=== PATIENT | female | born 1960 | race Two or more races ===

== ENCOUNTER 2019-03-03 13:03 | Observation (INO) | payer BC, OTHER ==
--- NOTE | 2019-03-03 13:16 | PDOC ---
Rapid Medical Evaluation Time Seen by Provider: 03/03/19 13:15 Medical Evaluation: 03/03/19 13:15 I have performed a brief in-person evaluation of this patient. The patient presents with a chief complaint of: Sent by PCP to r/o TIA vs vertigo Pertinent physical exam findings: NAD, ambulates I have ordered the following: Ct head The patient will proceed to the ED for further evaluation. Discharge Disposition - Diagnosis Dizziness - Referrals - Patient Instructions - Post Discharge Activity
--- NOTE | 2019-03-03 14:25 | PDOC ---
History of Present Illness - General Chief Complaint: Lightheaded Stated Complaint: SENT BY PCP Time Seen by Provider: 03/03/19 13:15 History Source: Patient Exam Limitations: No Limitations - History of Present Illness Initial Comments: 03/03/19 14:13 58 yo female pmh of HLD (not on statin, treated with diet) and ocular migraines with aura (strange taste in her mouth) presents to the ED for light headedness. Pt states around 8 pm last night after getting up from a seated position she suddenly became light headed, became excessively weak, had a presyncopal episode and was lowered to the ground by her . Denies LOC, hitting head, NAQVI, focal weakness. Pt admits to constant lightheadedness, nausea but no vomiting, unsteady gait. Denies F/C/N/V, CP, palpitations, SOB, changes in bowel or bladder habits. Pt went to PCP (Dr. Dylon Fuchs) and was sent to the ED for r/o TIA. Denies F/C, CP, palpitations, SOB, abdominal pain, changes in bowel or bladder habits. NIH Stroke Scale - Last Known Well Date/Time & Onset Date Last Known Well: 03/02/19 Time Last Known Well: 20:00 - Initial Evaluation Level of consciousness: Alert Ask patient the month and their age: Answers both correctly Ask patient to open & close eyes; make fist and let go: Obeys both correctly Best gaze (horizontal eye movement): Normal Visual field testing: No visual field loss Facial paresis (Show teeth/raise eyebrows/close eyes tight): Normal symmetrical movement Motor Function: Left Arm: Normal Motor Function: Right Arm: Normal (extends arm 90 (or 45) degrees for 10 seconds without drift Motor Function: Left Leg: Normal (extends leg 30 degrees for 5 seconds without drift) Motor Function: Right Leg: Normal (extends leg 30 degrees for 5 seconds without drift) Limb Ataxia: No ataxia Sensory(Use pinprick test arms,legs,trunk,face/side to side): Normal Best language (Describe picture, name items, read sentences): No Aphasia Dysarthria (read several words): Normal articulation Extinction and Inattention: No abnormality - Total Score NIH Stroke Scale Score: 0 Past History - Past Medical History Allergies/Adverse Reactions: Allergies Allergy/AdvReac Type Severity Reaction Status Date / Time No Known Allergies Allergy Verified 03/03/19 19:01 Home Medications: Ambulatory Orders NK [No Known Home Medication] 03/03/19 COPD: No - Immunization History Immunization Up to Date: Yes - Suicide/Smoking/Psychosocial Hx Smoking History: Never smoked Hx Alcohol Use: No Drug/Substance Use Hx: No Review of Systems - Review of Systems Constitutional: No: Chills, Fever HEENTM: Yes: Other (right ear hearing loss over the past 2 months). No: Blurred Vision, Double Vision, Tinnitus Respiratory: No: Shortness of Breath Cardiac (ROS): No: Chest Pain, Edema ABD/GI: Yes: Nausea. No: Constipated, Diarrhea, Vomiting : No: Burning, Dysuria, Flank Pain, Hematuria Musculoskeletal: No: Back Pain Integumentary: No: Bruising, Change in Color Neurological: Yes: Weakness (generalized), Unsteady Gait, Dizziness. No: Headache, Numbness, Paresthesia *Physical Exam - Vital Signs Last Vital Signs Temp Pulse Resp BP Pulse Ox 97.8 F 99 H 16 143/72 95 03/03/19 13:15 03/03/19 13:15 03/03/19 13:15 03/03/19 13:15 03/03/19 13:15 - Physical Exam General Appearance: Yes: Nourished, Appropriately Dressed. No: Apparent Distress HEENT: positive: EOMI, TIFFANY, Normal Voice, Hearing Grossly Normal. negative: Photophobia, Sinus Tenderness, TM Bulging, TM Erythema Neck: positive: Supple. negative: Carotid bruit, Decreased range of motion, Tender lateral, Tender midline Respiratory/Chest: positive: Lungs Clear, Normal Breath Sounds. negative: Respiratory Distress, Accessory Muscle Use, Rapid RR, Crackles, Rales, Rhonchi, Stridor, Wheezing Cardiovascular: positive: Regular Rhythm, Regular Rate, S1, S2. negative: Edema , JVD, Murmur Vascular Pulses: Dorsalis-Pedis (R): 4+, Doralis-Pedis (L): 4+ Gastrointestinal/Abdominal: positive: Flat, Soft. negative: Pulsatile Mass, Guarding, Rebound, Tenderness Musculoskeletal: negative: CVA Tenderness Extremity: positive: Normal Capillary Refill, Normal Range of Motion Integumentary: positive: Normal Color, Dry, Warm Neurologic: positive: business services specialist sales II-XII NML intact, Fully Oriented, Alert, Normal Mood/ Affect, Normal Response, Motor Strength 5/5, Other (no drift, normal rapid alternating movements ). negative: Facial Droop, Numbness, Sensory Deficit, Finger to Nose (normal), Confused, Disoriented ED Treatment Course - LABORATORY CBC & Chemistry Diagram: 03/04/19 06:19 03/04/19 06:19 - RADIOLOGY Radiology Studies Ordered: Category Date Time Status CHEST X-RAY PORTABLE* [RAD] Stat Radiology 03/03/19 14:09 Ordered Medical Decision Making - Medical Decision Making 58 yo female pmh of HLD (not on statin, treated with diet) and ocular migraines with aura (strange taste in her mouth) presents to the ED for light headedness. Pt states around 8 pm last night after getting up from a seated position she suddenly became light headed, became excessively weak, had a presyncopal episode and was lowered to the ground by her . Denies LOC, hitting head, NAQVI, focal weakness. Pt admits to constant lightheadedness, nausea but no vomiting, unsteady gait. Denies F/C/N/V, CP, palpitations, SOB, changes in bowel or bladder habits. Pt went to PCP (Dr. Dylon Fuchs) and was sent to the ED for r/o TIA. Denies F/C, CP, palpitations, SOB, abdominal pain, changes in bowel or bladder habits. Vitals WNL NAD, AOX3 Pt ambulates but very guarded and slow DDX INLT: CVA/TIA, central vs peripheral vertigo, toxic/metabolic/infectious etiology see PE Labs wnl Head CT negative for acute path ASA, Statin and non con MRI ordered 03/03/19 16:[address] Dylon George who agrees to have pt admitted to Stroke unit Spoke with Dr. Renee who is covering for Dr. Gomez, agrees to give asa, statin and MRI and will assess pt in the ED this afternoon for TIA/CVA *DC/Admit/Observation/Transfer Diagnosis at time of Disposition: Dizziness, TIA (transient ischemic attack), Weakness - Discharge Dispostion Disposition: HOME Condition at time of disposition: Stable Decision to Admit order: Yes - Referrals - Patient Instructions - Post Discharge Activity
--- NOTE | 2019-03-03 14:47 | PDOC ---
Attending Attestation - HPI HPI: 03/03/19 15:38 Patient is a 58 year old female with a significant past medical history of HLD, who presents to the ED with complaints of lightheadedness. Patient reports experiencing sudden episode of lightheadedness and associated general weakness after standing up from a seated position too fast. She reports having a presyncopal episode in which she had to be lowered onto the floor by her so that she would not fall. Patient reports going to see her PCP who advised her to come into the ED for further evaluation. Denies chest pain, sob. Denies nausea, vomiting. Denies fevers, chills. Denies diarrhea, constipation, diarrhea. Denies dysuria, hematuria. Denies contact with sick individuals, out of state travelling. Denies any other symptoms. Allergies: None Social history: No smoking. No alcohol. No illicit drugs. Surgical history: None PMD: Dr. Dylon guadalupe <Chalo Gtz - Last Filed: 03/03/19 15:38> - Resident Resident Name: Alessandro Ayala - ED Attending Attestation I have performed the following: I have examined & evaluated the patient, The case was reviewed & discussed with the resident, I agree w/resident's findings & plan, Exceptions are as noted - Physicial Exam PE: 03/03/19 17:15 GENERAL: The patient is in no acute distress. ENT: Ears normal, nares patent, oropharynx clear without exudates. Moist mucous membranes. No tonsillar enlargement, no exudates NECK: Normal range of motion, supple LUNGS: Breath sounds equal, clear to auscultation bilaterally. No wheezes, and no crackles. HEART:Regular rate and rhythm, normal S1 and S2 without murmur, rub or gallop. ABDOMEN: Soft, nontender, normoactive bowel sounds. EXTREMITIES: Normal range of motion, no edema. NEUROLOGICAL: Cranial nerves II through XII grossly intact. Normal speech. No focal neurological deficits. No focal weakness or numbness SKIN: Warm, Dry, normal turgor, no rashes or lesions noted. - Medical Decision Making 03/03/19 17:15 Twelve-lead EKG was performed and reviewed by me. There is normal sinus rhythm with a normal rate. The axis is normal. The intervals are normal. There are no ST or T wave abnormalities. Impression: Normal twelve-lead EKG 03/03/19 17:16 Laboratory Tests 03/03/19 03/03/19 03/03/19 15:20 15:30 15:30 WBC 6.9 Hgb 15.2 Hct 45.9 H Plt Count 279 INR 1.03 BUN Creatinine Creatine Kinase Troponin I Urine Blood Negative Urine Nitrite Negative Ur Leukocyte Esterase Negative 03/03/19 15:30 WBC Hgb Hct Plt Count INR BUN 13 Creatinine 0.6 Creatine Kinase 139 Troponin I < 0.02 Urine Blood Urine Nitrite Ur Leukocyte Esterase CT head - no acute pathology <Sierra Miller - Last Filed: 03/03/19 17:17>
--- NOTE | 2019-03-03 15:15 | EKG ---
Test Reason : Blood Pressure : / mmHG Vent. Rate : 080 BPM Atrial Rate : 080 BPM P-R Int : 156 ms QRS Dur : 088 ms QT Int : 416 ms P-R-T Axes : 062 059 069 degrees QTc Int : 479 ms NORMAL SINUS RHYTHM WITH SINUS ARRHYTHMIA MINIMAL VOLTAGE CRITERIA FOR LVH, MAY BE NORMAL VARIANT BORDERLINE ECG NO PREVIOUS ECGS AVAILABLE Confirmed by KIRK HIDALGO, SOHA ([id number]) on 03/03/2019 3:15:19 PM Referred By: Confirmed By:SOHA BRADLEY MD
[2019-03-03 15:45] LABS: BASO % 1.3 % (0-2.0); HEMATOCRIT 45.9 % (32.4-45.2); HEMOGLOBIN 15.2 GM/dL (10.7-15.3); LYMPH % 29.5 % (8-40); MCH 29.2 pg (25.7-33.7); MCHC 33.2 g/dl (32.0-36.0); MEAN CELL VOLUME 87.8 fl (80-96); MEAN PLT VOLUME 9.5 fl (7.5-11.1); MONO % 7.1 % (3.8-10.2); NEUT % 59.1 % (42.8-82.8); PLATELET COUNT 279 K/MM3 (134-434); RBC 5.22 M/mm3 (3.60-5.2); RDW 13.5 % (11.6-15.6); WHITE BLOOD COUNT 6.9 K/mm3 (4.0-10.0)
[2019-03-03 15:46] LABS: URINE APPEARANCE CLEAR; URINE BILIRUBIN NEGATIVE (NEGATIVE); URINE COLOR YELLOW; URINE GLUCOSE (UA) NEGATIVE (NEGATIVE); URINE KETONE NEGATIVE (NEGATIVE); URINE LEUK ESTERASE NEGATIVE (NEGATIVE); URINE NITRITE NEGATIVE (NEGATIVE); URINE PROTEIN NEGATIVE (NEGATIVE); URINE UROBILINOGEN 0.2 mg/dL (0.2-1.0)
[2019-03-03 15:59] LABS: INR 1.03 (0.83-1.09); PROTHROMBIN TIME (PATIENT) 12.1 SEC (9.7-13.0)
[2019-03-03 17:09] LABS: ALK PHOS 165 U/L (45-117); ANION GAP 9 MMOL/L (8-16); BILIRUBIN,TOTAL 0.3 mg/dL (0.2-1); BLOOD UREA NITROGEN 13 mg/dL (7-18); CALCIUM 8.7 mg/dL (8.5-10.1); CHLORIDE 107 mmol/L (98-107); CO2 25 mmol/L (21-32); CREATININE 0.6 mg/dL (0.55-1.3); GLUCOSE,RANDOM 84 mg/dL (74-106); SGOT/AST 22 U/L (15-37); SGPT/ALT 43 U/L (13-61); SODIUM 141 mmol/L (136-145); TOT PROT 7.9 g/dl (6.4-8.2)
--- NOTE | 2019-03-03 18:56 | HP ---
Admitting History and Physical - Admission Chief Complaint: came to my office c/o of dizzinesswhen moving head started last pm but also c/o. oerioral numbness and inability to move rt leg forward. sent er ? admitt observation and complete w/u w mri in am History Source: Patient, Family Member Limitations to Obtaining History: No Limitations - Past Medical History Cardiovascular: Yes: Other (h/o rh fever) ...: No Musculoskeletal: Yes: Chronic low back pain Endocrine: Yes: Other (endometriosid) - Past Surgical History Past Surgical History: Yes: None - Smoking History Smoking history: Never smoked - Alcohol/Substance Use Hx Alcohol Use: No - Social History Usual Living Arrangement: Yes: With Spouse ADL: Independent History of Recent Travel: No Family Disease History - Family Disease History Family History: Unremarkable Review of Systems - Review of Systems Constitutional: reports: No Symptoms Eyes: reports: No Symptoms HENT: reports: Other (? vertigo) Neck: reports: No Symptoms Cardiovascular: reports: No Symptoms Respiratory: reports: No Symptoms Gastrointestinal: reports: No Symptoms Genitourinary: reports: No Symptoms Musculoskeletal: reports: Back Pain Integumentary: reports: No Symptoms Neurological: reports: Dizziness Endocrine: reports: No Symptoms Hematology/Lymphatic: reports: No Symptoms Psychiatric: reports: No Symptoms Physical Examination Vital Signs: Vital Signs Temperature 97.8 F 03/03/19 13:15 Pulse Rate 99 H 03/03/19 13:15 Respiratory Rate 16 03/03/19 13:15 Blood Pressure 143/72 03/03/19 13:15 O2 Sat by Pulse Oximetry (%) 95 03/03/19 13:15 Constitutional: Yes: Well Nourished Eyes: Yes: WNL HENT: Yes: Other (pos head tilt test) Cardiovascular: Yes: WNL Respiratory: Yes: WNL Gastrointestinal: Yes: WNL ...Rectal Exam: Yes: Deferred Renal/: Yes: WNL Breast(s): Yes: WNL Extremities: Yes: WNL Edema: No Peripheral Pulses: Left Radial: 3+, Right Radial: 3+, Left Doralis Pedis: 3+, Right Dorsalis Pedis: 3+, Left Femoral: 3+, Right Femoral: 3+ Integumentary: Yes: WNL ...Motor Strength: WNL Psychiatric: Yes: WNL Labs: CBC, BMP 03/03/19 15:20 03/03/19 15:30 Assessment/Plan admitt oserv mri in am caratid sono echo neuro consult neuro chk antiver po reg diet bed rest asa po
[2019-03-03] MEDS ORDERED: MECLIZINE HCL 25 MG TABLET (FP) PO PRN (19:10)
[2019-03-03] MEDS ORDERED: ATORVASTATIN CA 80 MG TABLET (FP) PO ONE (19:15)
[2019-03-03] MEDS ORDERED: ASPIRIN 325 MG ENTERIC COATED TABLET (FP) PO ONE (19:15)
--- NOTE | 2019-03-03 22:02 | CON.NEURO ---
Consult Consult Specialty:: NEUROLOGY-REECE HIDALGO - History of Present Illness History of Present Illness: 58 yo female pmh of HLD (not on statin, treated with diet) and ocular migraines with aura (strange taste in her mouth) presents to the ED for light headedness. Pt states around 8 pm last night after getting up from a seated position she suddenly became light headed, became excessively weak, had a presyncopal episode and was lowered to the ground by her . Denies LOC, hitting head, NAQVI, focal weakness. Pt admits to constant lightheadedness, nausea but no vomiting, unsteady gait. Denies F/C/N/V, CP, palpitations, SOB, changes in bowel or bladder habits. Pt went to PCP (Dr. Dylon Fuchs) and was sent to the ED for r/o TIA. Denies F/C, CP, palpitations, SOB, abdominal pain, changes in bowel or bladder habits. 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 She also has cervical herniated discs. Last night while standing up had sudden onset dizziness and vertigo with muteness and "loosing strength in my legs"and collapsed to floor without LOC, was able to getr up after 10 mns, went to bed, an hour later had a few mns of vertigo again(all episodes without n/v0, woke up this morning with persistent dizzines and had another spell of vertigo lasting minutes-went to her PMDs and sent to ER. - Past Medical History Cardio/Vascular: Yes: Other (h/o rh fever) ...: No Musculoskeletal: Yes: Chronic low back pain Endocrine: Yes: Other (endometriosid) - Past Surgical History Past Surgical History: Yes: None - Alcohol/Substance Use Hx Alcohol Use: No - Smoking History Smoking history: Never smoked - Social History ADL: Independent History of Recent Travel: No Home Medications - Allergies Allergies/Adverse Reactions: Allergies Allergy/AdvReac Type Severity Reaction Status Date / Time No Known Allergies Allergy Verified 03/03/19 19:01 - Home Medications Home Medications: Ambulatory Orders NK [No Known Home Medication] 03/03/19 Physical Exam-Neuro Vital Signs: Vital Signs Temperature 97.8 F 03/03/19 13:15 Pulse Rate 78 03/03/19 19:05 Respiratory Rate 18 03/03/19 19:05 Blood Pressure 130/72 03/03/19 19:05 O2 Sat by Pulse Oximetry (%) 97 03/03/19 19:05 Labs: CBC, BMP 03/03/19 15:20 03/03/19 15:30 INR, PTT INR 1.03 (0.83-1.09) 03/03/19 15:30 - Neuro Exam DTR's: 1+ Left Tricep, 1+ Right Tricep, 1+ Left Brachioradialis, 1+ Right Brachioradialis, 1+ Left Achilles, 1+ Right Achilles (bilat knees-2+), 2+ Left Bicep, 2+ Right Bicep Motor Strength: 5/5: Left Arm, Right Arm, Left Leg, Right Leg (+RUE drift) Gait: Normal Imaging - Results Cat Scan: Image Reviewed (without acute abn.) Assessment/Plan Pt. with likely post-circulation crescendo TIAs, placed on ASA/statin today. Her exam is non-focal, her dizziness has improved markedly but is still present , vertigo resolved. Will obtain MRI brain(report pending, to my review no DWI abn but await report/MRA brain, ECHO/telemetry. Thank you, Shyla Renee MD
[2019-03-04 00:08] VITALS: BMI 28.7
[2019-03-04 07:54] LABS: BASO % 1.7 % (0-2.0); EOS % 3.9 % (0-4.5); HEMATOCRIT 44.2 % (32.4-45.2); HEMOGLOBIN 14.8 GM/dL (10.7-15.3); LYMPH % 31.4 % (8-40); MCH 29.1 pg (25.7-33.7); MCHC 33.4 g/dl (32.0-36.0); MEAN PLT VOLUME 9.4 fl (7.5-11.1); MONO % 6.5 % (3.8-10.2); NEUT % 56.5 % (42.8-82.8); PLATELET COUNT 254 K/MM3 (134-434); RBC 5.08 M/mm3 (3.60-5.2); RDW 13.6 % (11.6-15.6); WHITE BLOOD COUNT 5.5 K/mm3 (4.0-10.0)
[2019-03-04 08:31] LABS: ALBUMIN 3.6 g/dl (3.4-5.0); ALK PHOS 157 U/L (45-117); ANION GAP 8 MMOL/L (8-16); BILIRUBIN,TOTAL 0.5 mg/dL (0.2-1); BLOOD UREA NITROGEN 12 mg/dL (7-18); CHLORIDE 108 mmol/L (98-107); CO2 24 mmol/L (21-32); CREATININE 0.7 mg/dL (0.55-1.3); GLUCOSE,RANDOM 90 mg/dL (74-106); SGOT/AST 19 U/L (15-37); SGPT/ALT 41 U/L (13-61); SODIUM 141 mmol/L (136-145); TOT PROT 7.1 g/dl (6.4-8.2)
[2019-03-04] MEDS ORDERED: PANTOPRAZOLE 40 MG TABLET (FP) PO SCH (10:00)
[2019-03-04] MEDS ORDERED: ASPIRIN COATED 81 MG TABLET.EC PO SCH (10:00)
[2019-03-04 10:28] LABS: GAMMA GLUTAMYL TRANSPEPTIDASE 45 U/L (5-85)
--- NOTE | 2019-03-04 11:04 | PN ---
Progress Note, Physician Chief Complaint: feels better less diozziness vss - Current Medication List Current Medications: Active Medications Aspirin (Ecotrin -) 81 mg PO DAILY [facility] Last Admin: 03/04/19 10:16 Dose: 81 mg Atorvastatin Calcium (Lipitor -) 20 mg PO HS [facility] Meclizine HCl (Antivert -) 25 mg PO Q8H PRN PRN Reason: VERTIGO Pantoprazole Sodium (Protonix -) 40 mg PO DAILY [facility] Last Admin: 03/04/19 10:16 Dose: 40 mg - Objective Vital Signs: Vital Signs Temperature 97.5 F L 03/04/19 08:45 Pulse Rate 68 03/04/19 08:45 Respiratory Rate 18 03/04/19 08:45 Blood Pressure 120/65 03/04/19 08:45 O2 Sat by Pulse Oximetry (%) 98 03/03/19 22:00 Constitutional: Yes: Well Nourished Eyes: Yes: WNL HENT: Yes: WNL Neck: Yes: WNL Cardiovascular: Yes: WNL Respiratory: Yes: WNL, SOB on Exertion ...Rectal Exam: Yes: Deferred Genitourinary: Yes: WNL Breast(s): Yes: WNL Musculoskeletal: Yes: WNL, Muscle Weakness Edema: No Peripheral Pulses WNL: Yes Integumentary: Yes: WNL Neurological: Yes: Other (less dizziness) Psychiatric: Yes: WNL Labs: CBC, BMP 03/04/19 06:19 03/04/19 06:19 INR, PTT INR 1.03 (0.83-1.09) 03/03/19 15:30 Assessment/Plan post rt hemangioma? related to dizziness??? nuero f/u mras pnd chk sono high alp ggt
--- NOTE | 2019-03-04 11:06 | PN ---
Progress Note (short form) - Note Progress Note: 58 yo female pmh of HLD (not on statin, treated with diet) and ocular migraines with aura (strange taste in her mouth) presents to the ED for light headedness. Pt states around 8 pm last night after getting up from a seated position she suddenly became light headed, became excessively weak, had a presyncopal episode and was lowered to the ground by her . Denies LOC, hitting head, NAQVI, focal weakness. Pt admits to constant lightheadedness, nausea but no vomiting, unsteady gait. Denies F/C/N/V, CP, palpitations, SOB, changes in bowel or bladder habits. Pt went to PCP (Dr. Dylon George) and was sent to the ED for r/o TIA. Denies F/C, CP, palpitations, SOB, abdominal pain, changes in bowel or bladder habits. 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 She also has cervical herniated discs. Last night while standing up had sudden onset dizziness and vertigo with muteness and "loosing strength in my legs"and collapsed to floor without LOC, was able to getr up after 10 mns, went to bed, an hour later had a few mns of vertigo again(all episodes without n/v0, woke up this morning with persistent dizzines and had another spell of vertigo lasting minutes-went to her PMDs and sent to ER. MRI BRAIN IMPRESSION: Mild volume loss. Small venous angioma in the right posterior frontal lobe, medially with minimal hemosiderin deposits/chronic hemorrhage. Otherwise, no mass lesion, acute infarct or acute intracranial hemorrhage are identified. FU : better this AM, admits may have memory issues and word finding difficulty, + stress factors - Past Medical History Cardio/Vascular: Yes: Other (h/o rh fever) ...: No Musculoskeletal: Yes: Chronic low back pain Endocrine: Yes: Other (endometriosid) - Past Surgical History Past Surgical History: Yes: None - Alcohol/Substance Use Hx Alcohol Use: No - Smoking History Smoking history: Never smoked - Social History ADL: Independent History of Recent Travel: No Home Medications - Allergies Allergies/Adverse Reactions: Allergies Allergy/AdvReac Type Severity Reaction Status Date / Time No Known Allergies Allergy Verified 03/03/19 19:01 - Home Medications Home Medications: Ambulatory Orders NK [No Known Home Medication] 03/03/19 Physical Exam-Neuro Vital Signs: Vital Signs Temperature 97.5 F L 03/04/19 08:45 Pulse Rate 68 03/04/19 08:45 Respiratory Rate 18 03/04/19 08:45 Blood Pressure 120/65 03/04/19 08:45 O2 Sat by Pulse Oximetry (%) 98 03/03/19 22:00 Labs: CBC, BMP 03/03/19 15:20 03/03/19 15:30 INR, PTT INR 1.03 (0.83-1.09) 03/03/19 15:30 - Neuro Exam DTR's: 1+ Left Tricep, 1+ Right Tricep, 1+ Left Brachioradialis, 1+ Right Brachioradialis, 1+ Left Achilles, 1+ Right Achilles (bilat knees-2+), 2+ Left Bicep, 2+ Right Bicep Motor Strength: 5/5: Left Arm, Right Arm, Left Leg, Right Leg (+RUE drift) Gait: Normal Imaging - Results Cat Scan: Image Reviewed (without acute abn.) Assessment/Plan Positional dizziness , likely peripheral in nature ,resolving vertigo , MRI (-) . No consequence for venous angioma can FU Doppler -less likely vascular ENT eval outpt and likely can Dc home later today DR COMBS [id number]
--- NOTE | 2019-03-04 11:58 | ECHO ---
Name: JOSE LUIS SULTANA Exam:Adult Echocardiogram Study Date: 03/04/2019 08:24 AM Age: 58 yrs Reason For Study: TIA? Height: 64 in Weight: 160 lb BSA: 1.8 m2 MMode/2D Measurements & Calculations IVSd: 0.91 cm Ao root diam: 2.3 cm LVIDd: 4.8 cm LA dimension: 3.1 cm LVIDs: 3.0 cm LVPWd: 0.76 cm EDV(Teich): 109.1 ml LVOT diam: 2.0 cm ESV(Teich): 36.3 ml TAPSE: 2.7 cm Doppler Measurements & Calculations MV E max mika: 51.1 cm/sec Ao V2 max: 65.8 cm/sec MV A max mika: 78.5 cm/sec Ao max P.3 mmHg MV E/A: 0.65 Ao V2 mean: 69.3 cm/sec MV dec time: 0.24 sec Ao mean P.1 mmHg Ao V2 VTI: 22.2 cm MILI(I,D): 2.8 cm2 MILI(V,D): 4.4 cm2 LV V1 max P.7 mmHg SV(LVOT): 62.4 ml LV V1 mean P.1 mmHg LV V1 max: 96.4 cm/sec LV V1 mean: 67.9 cm/sec LV V1 VTI: 20.8 cm TR max mika: 211.9 cm/sec PI end-d mika: 74.5 cm/sec TR max P.2 mmHg Med Peak E' Mika: 3.8 cm/sec Med E/e': 13.4 Lat Peak E' Mika: 8.6 cm/sec Lat E/e': 5.9 Procedure A complete two-dimensional transthoracic echocardiogram was performed (2D, M-mode, Doppler and color flow Doppler). Left Ventricle The left ventricular size, thickness and function are normal. The left ventricular ejection fraction is normal. Ejection Fraction = 55-60%. The left ventricular wall motion is normal. Right Ventricle The right ventricle is normal in size and function. Atria Normal left and right atrial size and function. Mitral Valve There is no mitral regurgitation noted. Tricuspid Valve There is trace tricuspid regurgitation. Right ventricular systolic pressure is normal. Aortic Valve The aortic valve is trileaflet. No hemodynamically significant valvular aortic stenosis. No aortic regurgitation is present. Pulmonic Valve There is no pulmonic valvular regurgitation. Great Vessels The aortic root is normal size. Pericardium/Pleura There is no pericardial effusion. Interpretation Summary The left ventricular size, thickness and function are normal The right ventricle is normal in size and function. There is trace tricuspid regurgitation. MD Harrison Wolfe 03/04/2019 11:57 AM
--- NOTE | 2019-03-04 14:31 | PN ---
Progress Note, Physician - Current Medication List Current Medications: Active Medications Aspirin (Ecotrin -) 81 mg PO DAILY [facility] Last Admin: 03/04/19 10:16 Dose: 81 mg Atorvastatin Calcium (Lipitor -) 20 mg PO HS [facility] Meclizine HCl (Antivert -) 25 mg PO Q8H PRN PRN Reason: VERTIGO Pantoprazole Sodium (Protonix -) 40 mg PO DAILY [facility] Last Admin: 03/04/19 10:16 Dose: 40 mg - Objective Vital Signs: Vital Signs Temperature 97.5 F L 03/04/19 08:45 Pulse Rate 68 03/04/19 08:45 Respiratory Rate 18 03/04/19 08:45 Blood Pressure 120/65 03/04/19 08:45 O2 Sat by Pulse Oximetry (%) 97 03/04/19 10:00 Labs: CBC, BMP 03/04/19 06:19 03/04/19 06:19 INR, PTT INR 1.03 (0.83-1.09) 03/03/19 15:30 Assessment/Plan pt not on statin because she refused all meds incxludind statins i looked up chart and exsplainedto her and she remebers and agreed
--- NOTE | 2019-03-04 14:35 | DS ---
Physical Examination Vital Signs: Vital Signs Temperature 97.5 F L 03/04/19 08:45 Pulse Rate 68 03/04/19 08:45 Respiratory Rate 18 03/04/19 08:45 Blood Pressure 120/65 03/04/19 08:45 O2 Sat by Pulse Oximetry (%) 97 03/04/19 10:00 Constitutional: Yes: Well Nourished Eyes: Yes: WNL HENT: Yes: WNL Neck: Yes: WNL Cardiovascular: Yes: WNL Respiratory: Yes: WNL Gastrointestinal: Yes: WNL ...Rectal Exam: Yes: WNL Renal/: Yes: WNL Breast(s): Yes: WNL Musculoskeletal: Yes: WNL Extremities: Yes: WNL Edema: No Integumentary: Yes: WNL Neurological: Yes: WNL ...Motor Strength: WNL Psychiatric: Yes: WNL Labs: CBC, BMP 03/04/19 06:19 03/04/19 06:19 Discharge Summary Reason For Visit: TRANSIENT ISCHEMIC ATTACK,WEAKNESS Current Active Problems Dizziness (Acute) TIA (transient ischemic attack) (Acute) Weakness (Acute) Condition: Stable - Instructions Diet, Activity, Other Instructions: take aNTIVERT APPT W ME SAT 1100 D/C NOW HOME Referrals: Dylon George MD [Primary Care Provider] - Disposition: HOME - Home Medications Comprehensive Discharge Medication List: Ambulatory Orders NK [No Known Home Medication] 03/03/19
[2019-03-04 15:34] VITALS: BP 131/71; PULSE 83; TEMP 98.1
[2019-03-04] MEDS ORDERED: ATORVASTATIN CA 20 MG TABLET (FP) PO SCH (22:00)
== END 2019-03-04 17:21 | disposition home or self-care (01) ==
LOC: JER 13:03 → JERBED 16:27 → J4S 22:37
PROVIDERS: ADMIT Family Medicine; ATTEND Family Medicine
DX: G45.9 Transient cerebral ischemic attack, unspecified (principal); R53.1 Weakness; E78.5 Hyperlipidemia, unspecified
CPT/HCPCS: 36415; 70450-TC; 70551-TC; 71045-TC-FY; 80053; 81003; 82550; 82977; 84484; 85025; 85610; 86850; 86900; 86901; 87086; 93005; 93010; 93306-TC; 93880-TC; 97116-GP; 97162-GP; 99285-25; G0378

== ENCOUNTER 2019-06-01 05:23 | Inpatient (IN) | payer BC, OTHER ==
[2019-05-26 15:38] VITALS: BMI 29.2
--- NOTE | 2019-05-26 17:37 | HP ---
Admitting History and Physical - Primary Care Physician PCP: Dylon George - Admission Chief Complaint: preoperative evaluation History of Present Illness: 59 year old female with a PMHx significant for HLD, diet controlled presents for a preoperative history and physical. She has a cervical decompression laminectomy scheduled for 06/01/19. She states she has weakness, numbness and tingling in her hands and neck pain. She denies chest pain, sob, palpitations, n/v/d, fever/chills, no abdominal pain or recent illness, no recent travel. PCP: Dr. Dylon Geroge who did her preoperative eval on 05/13/19 Surgeon: Dr Raya History Source: Patient Limitations to Obtaining History: No Limitations - Past Medical History INTERVENTION TEACHER: Yes: Vertigo Cardiovascular: Yes: Hyperlipdemia, Other (h/o rh fever) Reproductive: Yes: Ectopic , Endometriosis, Fibroids, Postmenopausal Musculoskeletal: Yes: Chronic low back pain - Past Surgical History Additional Past Surgical History: thermal ablation of endometrial lining in 1999 tubal ligation x 2 ectopic , laparoscopy - Smoking History Smoking history: Never smoked Have you smoked in the past 12 months: No - Alcohol/Substance Use Hx Alcohol Use: No History of Substance Use: reports: None - Social History Usual Living Arrangement: Yes: With Significant Other ADL: Independent History of Recent Travel: No Home Medications - Allergies Allergies/Adverse Reactions: Allergies Allergy/AdvReac Type Severity Reaction Status Date / Time No Known Allergies Allergy Verified 05/26/19 15:27 - Home Medications Home Medications: Ambulatory Orders NK [No Known Home Medication] 03/03/19 Family Disease History - Family Disease History Family Disease History: Diabetes: Mother, Respiratory: Brother (copd) Review of Systems - Review of Systems Constitutional: reports: No Symptoms Eyes: reports: No Symptoms HENT: reports: No Symptoms Neck: reports: Pain on Movement, Stiffness, Tenderness Cardiovascular: reports: No Symptoms Respiratory: reports: No Symptoms Gastrointestinal: reports: No Symptoms Genitourinary: reports: No Symptoms Breasts: reports: No Symptoms Reported Musculoskeletal: reports: Back Pain, Decreased ROM, Muscle Pain, Muscle Weakness (upper extremities) Integumentary: reports: No Symptoms Neurological: reports: Parasthesia (upper extremities), Weakness (upper extremities) Endocrine: reports: No Symptoms Hematology/Lymphatic: reports: No Symptoms Psychiatric: reports: No Symptoms Physical Examination Constitutional: Yes: Well Nourished, No Distress, Calm Eyes: Yes: WNL, Conjunctiva Clear, EOM Intact HENT: Yes: WNL, Atraumatic, Normocephalic Neck: Yes: WNL, Supple, Trachea Midline Cardiovascular: Yes: WNL, Regular Rate and Rhythm, S1, S2. No: Murmur Respiratory: Yes: WNL, Regular, CTA Bilaterally Gastrointestinal: Yes: WNL, Normal Bowel Sounds, Soft Musculoskeletal: Yes: WNL Extremities: Yes: WNL Edema: No Peripheral Pulses WNL: Yes Integumentary: Yes: WNL Neurological: Yes: WNL, Alert, Oriented, Cran Nerves II-XII Intact ...Motor Strength: WNL Psychiatric: Yes: WNL, Alert, Oriented Problem List - Problems (1) Cervical herniated disc Code(s): M50.20 - OTHER CERVICAL DISC DISPLACEMENT, UNSP CERVICAL REGION Assessment/Plan 59 year old female here for a preoperative history and physical examination Surgery scheduled for 06/01/19 cervical decompression laminectomy, spondylosis, kyphosis C5-C6 Patient has done all of her preoperative workup with Dr. Dylon George on including blood work, EKG and chest xray
[2019-06-01] MEDS ORDERED: LIDOCAINE 1%-EPI 1:100,000 30 ML MDV IJ ONE (07:33)
[2019-06-01] MEDS ORDERED: THROMBIN (BOVINE) 20,000 UNIT VIAL TP ONE (07:33)
[2019-06-01] MEDS ORDERED: GENTAMICIN SO4 80 MG/2 ML VIAL ONE ×2 (07:33→08:22)
[2019-06-01] MEDS ORDERED: LIDOCAINE HCL/PF 2% SDV 5ML VIAL ONE (07:35)
[2019-06-01] MEDS ORDERED: ONDANSETRON 4 MG/2 ML VIAL ONE (07:35)
[2019-06-01] MEDS ORDERED: ceFAZolin SODIUM 1 GM VIAL ONE ×2 (07:35→17:19)
[2019-06-01] MEDS ORDERED: DEXAMETHASONE SOD PHOSPHATE 4 MG/1 ML VIAL ONE (07:35)
[2019-06-01] MEDS ORDERED: MAGNESIUM SULF 50% (8.12 MEQ/2 ML-1 GM VIAL) ONE (07:35)
[2019-06-01] MEDS ORDERED: SODIUM CHLORIDE 0.9% P/F 10 ML VIAL IJ ONE (07:35)
[2019-06-01] MEDS ORDERED: MIDAZOLAM HCL 2 MG/2 ML SINGLE DOSE VIAL ONE (07:36)
[2019-06-01] MEDS ORDERED: SUCCINYLCHOLINE CHLORIDE 200 MG/10 ML SYRINGE ONE (07:36)
[2019-06-01] MEDS ORDERED: ROCURONIUM BROMIDE 50 MG/5 ML VIAL ONE (07:36)
[2019-06-01] MEDS ORDERED: PROPOFOL 20 ML ONE ×2 (07:36)
[2019-06-01] MEDS ORDERED: KETAMINE HCL 200 MG/20 ML VIAL ONE (07:36)
[2019-06-01] MEDS ORDERED: DESFLURANE GAS 240 ML BOTTLE IH ONE (07:52)
[2019-06-01] MEDS ORDERED: IBUPROFEN 800 MG/8 ML IJ IVPB ONE (07:52)
[2019-06-01] MEDS ORDERED: ONDANSETRON 4 MG/2 ML VIAL IVPUSH PRN ×2 (08:13→10:58)
[2019-06-01] MEDS ORDERED: ceFAZolin SODIUM 1 GM VIAL IVPB ONE (08:45)
[2019-06-01] MEDS ORDERED: VANCOMYCIN 1,000 MG VIAL (RESTRICTED TO ID ONLY) ONE (08:54)
[2019-06-01] MEDS ORDERED: VANCOMYCIN 1,000 MG VIAL (RESTRICTED TO ID ONLY) IVPB ONE (08:59)
[2019-06-01] MEDS ORDERED: LIDOCAINE 1%/EPI 1:100000 (50 ML MULTI DOSE VIAL) NR ONE (09:06)
[2019-06-01] MEDS ORDERED: THROMBIN (BOVINE) 5,000 UNIT VIAL TP ONE (09:20)
[2019-06-01] MEDS ORDERED: GELATIN SPONGE,ABSORBABLE 1 GM PACKET TP ONE (09:20)
[2019-06-01] MEDS ORDERED: LIDOCAINE 2%/EPINEPHRINE 1:100000 (50 ML MD VIAL) INF ONE (09:21)
[2019-06-01] MEDS ORDERED: GLYCOPYRROLATE 0.2 MG/1 ML VIAL ONE (09:28)
[2019-06-01] MEDS ORDERED: ePHEDrine SULFATE 50 MG/1 ML AMPULE ONE (09:56)
[2019-06-01] MEDS ORDERED: NEOSTIGMINE METHYLSULFATE 0.5 MG/1 ML - 10 ML MDV ONE (10:27)
[2019-06-01] MEDS ORDERED: oxyCODONE HCL 5 MG TABLET PO PRN ×2 (10:58)
[2019-06-01] MEDS ORDERED: diphenhydrAMINE HCL 25 MG CAPSULE (FP) PO PRN (10:58)
[2019-06-01] MEDS ORDERED: LACTATED RINGERS SOLUTION 1,000 ML/1,000 ML INFUS.BAG IV SCH (11:00)
[2019-06-01] MEDS ORDERED: ACETAMINOPHEN INJECTION 100 ML IVPB ONE (11:17)
--- NOTE | 2019-06-01 11:20 | OP ---
Operative Note - Note: Operative Date: 06/01/19 Pre-Operative Diagnosis: Cervical spondylosis Operation: C5 corpectomy, holiness of lordosis, reconstruction with Peak cage and anterior plating Post-Operative Diagnosis: Same as Pre-op Surgeon: Raphael Manrique Supervisor [employer]: Kaiser Shabazz Anesthesiologist/VEST FRONT PRESSER: Moe Castanon Anesthesia: General Operative Report Dictated: Yes
--- NOTE | 2019-06-01 11:24 | HP ---
History & Physical Update - History History: No Change - Physical Physical: No Change - Assessment Assessment: No Change - Plan Plan: No Change (full H&P from 05/26/19 by Dylon George)
[2019-06-01] MEDS: LACTATED RINGERS SOLUTION 1,000 ML IV SCH (11:30)
[2019-06-01] MEDS ORDERED: ACETAMINOPHEN 1000 MG/100 ML VIAL (NON FORMULARY) IVPB ONE (11:30)
[2019-06-01] MEDS: HEPARIN NA (PORCINE) 5,000 UNITS/ML 1ML VIAL SQ SCH ×2 (14:00→17:31)
[2019-06-01] MEDS: DOCUSATE SODIUM 100 MG CAPSULE (FP) PO SCH ×2 (14:02→21:42)
[2019-06-01] MEDS: morphine SULFATE 4 MG/ML VIAL IVPUSH PRN ×2 (14:10→19:06)
[2019-06-01] MEDS ORDERED: DEXTROSE 5%-WATER - 50 ML IVPB ONE (17:19)
[2019-06-01] MEDS: CEFAZOLIN 1 GM in DEXTROSE 5%-WATER - 50 ML IVPB SCH (17:30)
[2019-06-02] MEDS: CEFAZOLIN 1 GM in DEXTROSE 5%-WATER - 50 ML IVPB SCH ×2 (02:00→10:00)
[2019-06-02] MEDS: morphine SULFATE 4 MG/ML VIAL IVPUSH PRN (02:14)
[2019-06-02] MEDS ORDERED: DEXTROSE 5%-WATER - 50 ML IVPB ONE ×2 (02:59→09:51)
[2019-06-02] MEDS ORDERED: ceFAZolin SODIUM 1 GM VIAL ONE ×2 (02:59→09:51)
[2019-06-02] MEDS: HEPARIN NA (PORCINE) 5,000 UNITS/ML 1ML VIAL SQ SCH ×3 (03:13→18:01)
[2019-06-02] MEDS: DOCUSATE SODIUM 100 MG CAPSULE (FP) PO SCH ×3 (05:42→21:44)
[2019-06-02 07:44] LABS: BASO % 0.2 % (0-2.0); EOS % 0.1 % (0-4.5); HEMATOCRIT 38.8 % (32.4-45.2); HEMOGLOBIN 12.9 GM/dL (10.7-15.3); LYMPH % 9.8 % (8-40); MCHC 33.3 g/dl (32.0-36.0); MEAN CELL VOLUME 87.1 fl (80-96); MEAN PLT VOLUME 9.6 fl (7.5-11.1); MONO % 7.2 % (3.8-10.2); NEUT % 82.7 % (42.8-82.8); PLATELET COUNT 248 K/MM3 (134-434); RBC 4.45 M/mm3 (3.60-5.2); RDW 13.3 % (11.6-15.6); WHITE BLOOD COUNT 13.9 K/mm3 (4.0-10.0)
[2019-06-02 08:05] LABS: BLOOD UREA NITROGEN 10.5 mg/dL (7-18); CALCIUM 8.4 mg/dL (8.5-10.1); CREATININE 0.6 mg/dL (0.55-1.3)
--- NOTE | 2019-06-02 08:36 | SPA.POSTOP ---
- POST-OP NOTE POD #1 s/p C5 corpectomy, latter day of lordosis, reconstruction with Peak cage and anterior plating No acute events since surgical procedure per RN notes. Patient resting comfortably. C/o incisional tenderness. Adequate pain management with meds as ordered. States the numbness/weakness she was experiencing in both UE/hands prior too surgery has completely resolved s/p surgery. Wearing her cervical collar as instructed. Using her incentive spirometer as directed. Denies n/v/f/c, CP or SOB. Last Vital Signs Temp Pulse Resp BP Pulse Ox 98 F 92 H 20 121/75 94 L 06/02/19 06:00 06/02/19 06:00 06/02/19 06:00 06/02/19 06:00 06/01/19 13:00 KEVIN Output 06/01/19 06/02/19 23:00 06:00 KEVIN 5 10 Physical Exam General: No acute distress. Neck: Soft. Supple. Dressing c/d/i. KEVIN on bulb suction (sero>sang). No hematoma. Pulm: Clear to auscultation bilat anteriorly Cor: Regular rhythm Abd: Soft. Non-tender. No distention LE: Soft, non-tender bilat. SCD's bilat. Problem List - Problems (1) Cervical herniated disc Assessment/Plan: POD #1 s/p C5 corpectomy, latter day of lordosis, reconstruction with Peak cage and anterior plating Cont to wear you cervical collar 23/24 hours. May remove while eating. Clear liquids and advance as tolerated OOB and ambulate Tylenol for fever > 100.3F Physical Therapy Possible dc KEVIN later today. DC planning Above plan discussed with Dr. Manrique and agrees. Code(s): M50.20 - OTHER CERVICAL DISC DISPLACEMENT, UNSP CERVICAL REGION Visit type - Case Type Case Type: Scheduled - New patient This patient is new to me today: Yes Date on this admission: 06/02/19
[2019-06-02] MEDS: FERROUS SO4 325 MG TABLET (FP) PO SCH (10:00)
[2019-06-02] MEDS: FOLIC ACID 1 MG TABLET (FP) PO SCH (10:01)
[2019-06-02] MEDS ORDERED: POLYETHYLENE GLYCOL 3350 119 GM BTL PO ONE (11:21)
--- NOTE | 2019-06-02 12:59 | CONSULT ---
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 Cardio/Vascular: Yes: Hyperlipdemia, Other (H/O R FEVER) Musculoskeletal: Yes: Chronic low back pain ENT: Yes: Other (neck brade intaCT) Endocrine: Yes: Other (endometriosid) - Past Surgical History Past Surgical History: Yes: None - Alcohol/Substance Use Hx Alcohol Use: No History of Substance Use: reports: None - Smoking History Smoking history: Never smoked Have you smoked in the past 12 months: No - Social History ADL: Independent History of Recent Travel: No Home Medications - Allergies Allergies/Adverse Reactions: Allergies Allergy/AdvReac Type Severity Reaction Status Date / Time No Known Allergies Allergy Verified 06/01/19 06:41 - Home Medications Home Medications: Ambulatory Orders NK [No Known Home Medication] 03/03/19 Family Disease History - Family Disease History Family History: Unremarkable Family Disease History: Diabetes: Mother, Respiratory: Brother (copd) Review of Systems - Review of Systems Constitutional: reports: Other (NECK PAIN SCALE 7 DIFF SWALLOWING NO BM YET) Eyes: reports: No Symptoms HENT: reports: Difficult Swallowing Neck: reports: Pain on Movement Cardiovascular: reports: No Symptoms Respiratory: reports: No Symptoms Gastrointestinal: reports: No Symptoms Genitourinary: reports: No Symptoms Breasts: reports: No Symptoms Reported Musculoskeletal: reports: No Symptoms Integumentary: reports: No Symptoms Neurological: reports: No Symptoms Endocrine: reports: No Symptoms Hematology/Lymphatic: reports: No Symptoms Psychiatric: reports: No Symptoms Physical Exam Vital Signs: Vital Signs Temperature 98 F 06/02/19 06:00 Pulse Rate 92 H 06/02/19 06:00 Respiratory Rate 20 06/02/19 06:00 Blood Pressure 121/75 06/02/19 06:00 O2 Sat by Pulse Oximetry (%) 94 L 06/01/19 13:00 Constitutional: Yes: Well Nourished, Calm Eyes: Yes: WNL HENT: Yes: WNL Neck: Yes: Other (BRACE INTACT) Cardiovascular: Yes: WNL Respiratory: Yes: WNL Gastrointestinal: Yes: Hypoactive Bowel Sounds ...Rectal Exam: Yes: WNL, Deferred Renal/: Yes: WNL Breast(s): Yes: WNL Musculoskeletal: Yes: WNL, Muscle Weakness Edema: No Peripheral Pulses WNL: Yes Wound/Incision: Yes: Clean/Dry, Other (DRAIN OUT) ...Motor Strength: WNL Psychiatric: Yes: WNL Labs: CBC, BMP 06/02/19 06:43 06/02/19 06:43 Assessment/Plan CBC IN AM CONT MIRALAX OOB ASA STARTED AGAIN ? D/C IN AM
[2019-06-02] MEDS: LACTATED RINGERS SOLUTION 1,000 ML IV SCH (17:53)
[2019-06-03] MEDS: HEPARIN NA (PORCINE) 5,000 UNITS/ML 1ML VIAL SQ SCH ×3 (02:06→18:05)
[2019-06-03] MEDS: DOCUSATE SODIUM 100 MG CAPSULE (FP) PO SCH ×2 (05:31→13:43)
[2019-06-03 06:51] LABS: BASO % 0.5 % (0-2.0); EOS % 0.2 % (0-4.5); HEMOGLOBIN 14.6 GM/dL (10.7-15.3); LYMPH % 15.4 % (8-40); MCH 29.4 pg (25.7-33.7); MEAN CELL VOLUME 86.7 fl (80-96); MONO % 6.5 % (3.8-10.2); NEUT % 77.4 % (42.8-82.8); PLATELET COUNT 263 K/MM3 (134-434); RBC 4.96 M/mm3 (3.60-5.2); RDW 13.4 % (11.6-15.6); WHITE BLOOD COUNT 11.2 K/mm3 (4.0-10.0)
[2019-06-03] MEDS: FERROUS SO4 325 MG TABLET (FP) PO SCH (09:37)
[2019-06-03] MEDS: FOLIC ACID 1 MG TABLET (FP) PO SCH (09:37)
[2019-06-03] MEDS ORDERED: ASPIRIN COATED 81 MG TABLET.EC PO SCH (10:00)
[2019-06-03] MEDS ORDERED: PANTOPRAZOLE SOD 40 MG SUSPENSION PACKET PO SCH (10:00)
[2019-06-03 18:47] VITALS: BP 126/74; PULSE 126; TEMP 98.3
--- NOTE | 2019-06-04 14:23 | SURG ---
Surgery Ferry [employer] Agent Note [employer] Agent: Kaiser Shabazz PA-C Date of Service: 06/01/19 Diagnosis: Cervical Spondylotic Myelopathy Procedure: 1. Interbody Cage (Corpectomy) 2. C4 Caudal Hemicorpectomy with resection of osteophytes and posterior longitudinal ligament (technically challenging) 3. C5 Corpectomy with resection of osteophytes and posterior longitudinal ligament 4. C6 Rostral Hemicorpectomy with resection of osteophytes and posterior longitudinal ligament 5. Anterior Instrumentation C4-6 (technically challenging) 6. Fluroscopy 7. Microdissection 8. C4/5 Arthodesis 9. C5/6 arthodesis 10. Local Autograft 11. Deformity Correction (worship of lordosis) I was present for the entirety of the operative procedure. For further detail, please refer to operative report. Visit type - Case Type Case Type: Scheduled - Emergency Emergency Visit: No - New patient This patient is new to me today: Yes Date on this admission: 06/04/19 - Critical Care Critical Care patient: No
== END 2019-06-03 20:50 | disposition home or self-care (01) | DRG 473 ==
LOC: JSAMEDAYSX 05:23 → J8W 12:57
PROVIDERS: ADMIT Neurological Surgery; ATTEND Family Medicine
PROC: 0RB30ZZ Excision of Cervical Vertebral Disc, Open Approach (ICD-10-PCS; 2019-06-01)
PROC: 00NW0ZZ Release Cervical Spinal Cord, Open Approach (ICD-10-PCS; 2019-06-01)
PROC: B01BZZZ Fluoroscopy of Spinal Cord (ICD-10-PCS; 2019-06-01)
PROC: 0RG20A0 Fusion of 2 or more Cervical Vertebral Joints with Interbody Fusion Device, Anterior Approach, Anterior Column, Open Approach (ICD-10-PCS; principal; 2019-06-01 08:00)
DX: M47.892 Other spondylosis, cervical region (principal); E78.5 Hyperlipidemia, unspecified; M47.12 Other spondylosis with myelopathy, cervical region
CPT/HCPCS: 36415; 72125-TC; 76000-TC-FY; 80048; 84703; 85025; 86850; 86900; 86901; 94760; 97116-GP; 97161-GP; J0131; J1644